=== PATIENT | female | born 1985 | race Caucasian/White ===

== ENCOUNTER 2020-10-03 07:22 | Emergency (ER) | payer OTHER ==
[2020-10-03] MEDS ORDERED: TORAdol 30 mg Injection IV ONE (07:32)
[2020-10-03] MEDS ORDERED: Sodium Chloride 0.9% 1000 ML 1,000 ML IV STA (07:32)
[2020-10-03] MEDS ORDERED: Sodium Chloride 0.9% 1000 ML 1,000 ML ONE (07:41)
[2020-10-03] MEDS ORDERED: TORAdol 30 mg Injection ONE (07:41)
[2020-10-03 07:43] LABS: Absolute Neutrophil Ct (ANC) 4.72 (1.4-6.9); BASOPHIL % 0.3 % (0.0-0.4); Basophil (Absolute #) 0.02 (0-0.4); Eosinophil % 2.4 % (0.00-5.0); Eosinophil (Absolute #) 0.19 (0-0.5); Hematocrit 41.2 % (35-47); Hemoglobin 13.7 gm/dl (12.0-16.0); Lymphocyte (Absolute #) 2.42 (1.0-4.6); Lymphocytes % 30.8 % (24.0-44.0); Mean Cell Volume 86.7 fl (78-100); Mean Corpuscular Hemoglobin 28.8 pg (26-32); Mean Corpuscular Hgb Concent. 33.3 g/dl (32-36); Mean Platelet Volume 9.8 fl (7.5-11.0); Monocyte (Absolute #) 0.51 (0.0-1.3); Monocytes % 6.5 % (0.0-12.0); Platelet Count 307 K/mm3 (150-450); Red Blood Count 4.75 M/mm3 (4.1-5.4); Red Cell Distribution Width 12.9 % (11.5-14.0); White Blood Count 7.9 K/mm3 (4.0-10.5)
[2020-10-03 07:49] LABS: Appearance SLIGHTLY CLOUDY (CLEAR); Bacteria RARE /HPF (NEGATIVE); Bilirubin NEGATIVE (NEGATIVE); Blood NEGATIVE Ery/ul (0-5); Epithelial Cells FEW /HPF (FEW); Glucose NEGATIVE (NEGATIVE); Ketones NEGATIVE (NEGATIVE); Leukocyte Esterase LARGE (NEGATIVE); Mucus MANY /HPF (NEGATIVE); Nitrite NEGATIVE (NEGATIVE); Protein,Urine Dip 30 (Negative); Specific Gravity 1.016 (1.005-1.025); Urobilinogen NEGATIVE mg/dL (0-1)
[2020-10-03 07:54] LABS: ALBUMIN 4.7 g/dL (3.5-5.0); ALKALINE PHOSPHATASE 102 U/L (38-126); AMYLASE 50 U/L (30-110); ANION GAP 13.1 MEQ/L (5-15); BLOOD UREA NITROGEN 13 mg/dL (7-17); CHLORIDE 101 mmol/L (98-107); Calcium 9.5 mg/dL (8.4-10.2); Carbon Dioxide 26 mmol/L (22-30); Creatinine 1 0.67 mg/dL (0.52-1.04); EST GLOMERULAR FILTRATION RATE > 60.0 ML/MIN; Glucose 107 mg/dL (74-106); LIPASE 32 U/L (23-300); Potassium 3.8 mmol/L (3.5-5.1); SGOT/AST 35 U/L (14-36); SGPT/ALT 26 U/L (0-35); SODIUM 136 mmol/L (137-145); Total Protein 8.1 g/dL (6.3-8.2)
[2020-10-03 08:40] VITALS: BP 158/99; PULSE 75; O2SAT 98
--- NOTE | 2020-10-03 08:42 | XRAY ---
Indication: Bilateral flank pain. History kidney stones. Multiple contiguous axial images obtained through the abdomen and pelvis without contrast using renal stone protocol. Comparison: None Lung bases are clear. Heart is not enlarged. No renal calculus or evidence for obstructive uropathy in either system. Noncontrasted stomach and bowel loops appear nonobstructed. Normal appendix with incidental tiny distal appendicolith. There has been hysterectomy. No free fluid/air. Remaining liver, gallbladder, pancreas, spleen, adrenal glands, kidneys, ureters, bladder, and aorta appear unremarkable for noncontrast exam. Osseous structures intact with incidental small L2 Schmorl node. No ventral or inguinal hernias. Impression: 1. Negative renal calculus or evidence for obstructive uropathy. 2. Incidental appendicolith and L2 Schmorl node. 3. Remaining CT abdomen/pelvis without contrast exam is negative.
--- NOTE | 2020-10-03 08:55 | ERPHSYRPT ---
- History of Present Illness Time Seen by Provider: 10/03/20 07:30 Historian: patient Exam Limitations: no limitations Patient Subjective Stated Complaint: pt here for pain to lower flank for a couple days, no nausea or fever, Triage Nursing Assessment: pt alert, resp easy, face mask in place, skin w/d/p. abd soft Physician History: Patient is a 35-year-old female who presents with right flank pain and low back pain since Saturday. At 2 AM this morning she had a severe episode of pain which radiated in the right flank and right lower abdomen no nausea vomiting diarrhea no change in urination no fever chills or sweats she does have a history of renal stone in the past. Timing/Duration: day(s) (4) Activities at Onset: none Quality: cramping, stabbing Abdominal Pain Onset Location: flank (right) Pain Radiation: RLQ Severity of Pain-Max: moderate Severity of Pain-Current: moderate Modifying Factors: Improves With: nothing Allergies/Adverse Reactions: No Known Drug Allergies Allergy (Verified 10/03/20 07:36) Home Medications: Celecoxib 100 mg [celeBREX 100 MG] 1 ea BID 10/03/20 [History] Duloxetine HCl 30 mg [Cymbalta 30 MG Capsule] 1 ea DAILY 10/03/20 [History] Hx Influenza Vaccination/Date Given: Yes Hx Pneumococcal Vaccination/Date Given: No Immunizations Up to Date: Yes Travel Risk - International Travel Have you traveled outside of the country in past 3 weeks: No - Coronavirus Screening Are you exhibiting any of the following symptoms?: No - Review of Systems Constitutional: No Fever, No Chills Eyes: No Symptoms Ears, Nose, & Throat: No Symptoms Respiratory: No Cough, No Dyspnea Cardiac: No Chest Pain, No Edema, No Syncope Abdominal/Gastrointestinal: No Abdominal Pain, No Nausea, No Vomiting, No Diarrhea Genitourinary Symptoms: Flank Pain, No Dysuria Musculoskeletal: Other (Back and right flank pain), No Back Pain, No Neck Pain Skin: No Symptoms, No Rash Neurological: No Symptoms, No Dizziness, No Focal Weakness, No Sensory Changes Psychological: No Symptoms Endocrine: No Symptoms All Other Systems: Reviewed and Negative - Past Medical History Pertinent Past Medical History: Yes Neurological History: No Pertinent History ENT History: No Pertinent History Cardiac History: Hypertension Respiratory History: No Pertinent History Endocrine Medical History: No Pertinent History Musculoskeletal History: Osteoporosis GI Medical History: No Pertinent History History: No Pertinent History Psycho-Social History: No Pertinent History Female Reproductive Disorders: Cervical Cancer, Menstrual Problems, Other Other Medical History: HX OF CERVICAL CA, HX OF SKIN CA, HX OF PRE ECLAMPSIA - Past Surgical History Past Surgical History: Yes Neuro Surgical History: No Pertinent History Cardiac: No Pertinent History Respiratory: No Pertinent History Gastrointestinal: No Pertinent History Genitourinary: No Pertinent History Musculoskeletal: No Pertinent History Female Surgical History: Hysterectomy, Tubal Ligation, Other Other Surgical History: UTERINE ABLASION DONE 2011, CA CERVICAL CELLS REMOVED, IN REMISSION - Social History Smoking Status: Never smoker Exposure to second hand smoke: No Drug Use: none Patient Lives Alone: No - Female History Hx Last Menstrual Period: hyster Hx Now: No - Nursing Vital Signs Nursing Vital Signs: Initial Vital Signs Temperature 97.7 F 10/03/20 07:23 Pulse Rate 104 H 10/03/20 07:23 Respiratory Rate 16 10/03/20 07:23 Blood Pressure 167/116 10/03/20 07:23 O2 Sat by Pulse Oximetry 100 10/03/20 07:23 Pain Scale Pain Intensity 7 - Physical Exam General Appearance: mild distress, alert Eye Exam: PERRL/EOMI, eyes nml inspection Ears, Nose, Throat Exam: normal ENT inspection, pharynx normal, moist mucous membranes Neck Exam: normal inspection, non-tender, supple, full range of motion Respiratory Exam: normal breath sounds, lungs clear, No respiratory distress Cardiovascular Exam: regular rate/rhythm, normal heart sounds Gastrointestinal/Abdomen Exam: soft, No tenderness, No mass Back Exam: normal inspection, normal range of motion, CVA tenderness (right), No vertebral tenderness Extremity Exam: normal inspection, normal range of motion, pelvis stable Neurologic Exam: alert, oriented x 3, cooperative, normal mood/affect, nml cerebellar function, sensation nml, No motor deficits Skin Exam: normal color, warm, dry SpO2 Interpretation: normal SpO2: 98 O2 Delivery: Room Air - Course Nursing assessment & vital signs reviewed: Yes - CT Exams Abdomen/Pelvis CT Interpretation: Negative Ordered Tests: Active Orders 24 hr Category Date Time Status IV Insertion STAT Care 10/03/20 07:32 Active ABDOMEN AND PELVIS W/0 CONTRAS [CT] Stat Exams 10/03/20 07:33 Completed AMYLASE Stat Lab 10/03/20 07:47 Completed CBC W DIFF Stat Lab 10/03/20 07:32 Completed CMP Stat Lab 10/03/20 07:47 Completed CULTURE,URINE Stat Lab 10/03/20 07:39 Received LIPASE Stat Lab 10/03/20 07:47 Completed Lactic Acid Stat Lab 10/03/20 07:32 Completed UA W/RFX UR CULTURE Stat Lab 10/03/20 07:39 Completed Medication Summary Discontinued Medications Generic Name Dose Route Start Last Admin Trade Name Frejeison PRN Reason Stop Dose Admin Sodium Chloride 1,000 mls @ 999 mls/hr 10/03/20 07:32 10/03/20 07:47 Sodium Chloride 0.9% 1000 Ml IV 10/03/20 08:32 999 mls/hr .Q1H1M STA Administration Sodium Chloride Confirm 10/03/20 07:41 Sodium Chloride 0.9% 1000 Ml Administered 10/03/20 07:42 Dose 1,000 mls @ ud .ROUTE .STK-MED ONE Ketorolac Tromethamine 30 mg 10/03/20 07:32 10/03/20 07:47 Toradol 30 Mg Injection IV 10/03/20 07:33 30 mg STAT ONE Administration Ketorolac Tromethamine Confirm 10/03/20 07:41 Toradol 30 Mg Injection Administered 10/03/20 07:42 Dose 30 mg .ROUTE .STK-MED ONE Lab/Rad Data: Laboratory Result Diagrams 10/03/20 07:32 10/03/20 07:47 Laboratory Results 10/03/20 10/03/20 10/03/20 Range/Units 07:47 07:39 07:32 WBC (4.0-10.5) K/mm3 RBC (4.1-5.4) M/mm3 Hgb (12.0-16.0) gm/dl Hct (35-47) % MCV (78-100) fl MCH (26-32) pg MCHC (32-36) g/dl RDW (11.5-14.0) % Plt Count (150-450) K/mm3 MPV (7.5-11.0) fl Gran % (36.0-66.0) % Eos # (Auto) (0-0.5) Absolute Lymphs (auto) (1.0-4.6) Absolute Monos (auto) (0.0-1.3) Lymphocytes % (24.0-44.0) % Monocytes % (0.0-12.0) % Eosinophils % (0.00-5.0) % Basophils % (0.0-0.4) % Absolute Granulocytes (1.4-6.9) Basophils # (0-0.4) Sodium 136 L (137-145) mmol/L Potassium 3.8 (3.5-5.1) mmol/L Chloride 101 (98-107) mmol/L Carbon Dioxide 26 (22-30) mmol/L Anion Gap 13.1 (5-15) MEQ/L BUN 13 (7-17) mg/dL Creatinine 0.67 (0.52-1.04) mg/dL Estimated GFR > 60.0 ML/MIN Glucose 107 H (74-106) mg/dL Lactic Acid 1.1 (0.4-2.0) Calcium 9.5 (8.4-10.2) mg/dL Total Bilirubin 0.60 (0.2-1.3) mg/dL AST 35 (14-36) U/L ALT 26 (0-35) U/L Alkaline Phosphatase 102 (38-126) U/L Serum Total Protein 8.1 (6.3-8.2) g/dL Albumin 4.7 (3.5-5.0) g/dL Amylase 50 (30-110) U/L Lipase 32 (23-300) U/L Urine Color YELLOW (YELLOW) Urine Appearance SLIGHTLY CLOUDY (CLEAR) Urine pH 6.0 (5-6) Ur Specific Homer 1.016 (1.005-1.025) Urine Protein 30 (Negative) Urine Ketones NEGATIVE (NEGATIVE) Urine Blood NEGATIVE (0-5) Rc/ul Urine Nitrite NEGATIVE (NEGATIVE) Urine Bilirubin NEGATIVE (NEGATIVE) Urine Urobilinogen NEGATIVE (0-1) mg/dL Ur Leukocyte Esterase LARGE (NEGATIVE) Urine WBC (Auto) 3-5 (0-5) /HPF Urine RBC (Auto) 3-5 (0-2) /HPF U Epithel Cells (Auto) FEW (FEW) /HPF Urine Bacteria (Auto) RARE (NEGATIVE) /HPF Urine Mucus (Auto) MANY (NEGATIVE) /HPF Urine Culture Reflexed YES (NO) Urine Glucose NEGATIVE (NEGATIVE) mg/dL 10/03/20 Range/Units 07:32 WBC 7.9 (4.0-10.5) K/mm3 RBC 4.75 (4.1-5.4) M/mm3 Hgb 13.7 (12.0-16.0) gm/dl Hct 41.2 (35-47) % MCV 86.7 (78-100) fl MCH 28.8 (26-32) pg MCHC 33.3 (32-36) g/dl RDW 12.9 (11.5-14.0) % Plt Count 307 (150-450) K/mm3 MPV 9.8 (7.5-11.0) fl Gran % 60.0 (36.0-66.0) % Eos # (Auto) 0.19 (0-0.5) Absolute Lymphs (auto) 2.42 (1.0-4.6) Absolute Monos (auto) 0.51 (0.0-1.3) Lymphocytes % 30.8 (24.0-44.0) % Monocytes % 6.5 (0.0-12.0) % Eosinophils % 2.4 (0.00-5.0) % Basophils % 0.3 (0.0-0.4) % Absolute Granulocytes 4.72 (1.4-6.9) Basophils # 0.02 (0-0.4) Sodium (137-145) mmol/L Potassium (3.5-5.1) mmol/L Chloride (98-107) mmol/L Carbon Dioxide (22-30) mmol/L Anion Gap (5-15) MEQ/L BUN (7-17) mg/dL Creatinine (0.52-1.04) mg/dL Estimated GFR ML/MIN Glucose (74-106) mg/dL Lactic Acid (0.4-2.0) Calcium (8.4-10.2) mg/dL Total Bilirubin (0.2-1.3) mg/dL AST (14-36) U/L ALT (0-35) U/L Alkaline Phosphatase (38-126) U/L Serum Total Protein (6.3-8.2) g/dL Albumin (3.5-5.0) g/dL Amylase (30-110) U/L Lipase (23-300) U/L Urine Color (YELLOW) Urine Appearance (CLEAR) Urine pH (5-6) Ur Specific Homer (1.005-1.025) Urine Protein (Negative) Urine Ketones (NEGATIVE) Urine Blood (0-5) Rc/ul Urine Nitrite (NEGATIVE) Urine Bilirubin (NEGATIVE) Urine Urobilinogen (0-1) mg/dL Ur Leukocyte Esterase (NEGATIVE) Urine WBC (Auto) (0-5) /HPF Urine RBC (Auto) (0-2) /HPF U Epithel Cells (Auto) (FEW) /HPF Urine Bacteria (Auto) (NEGATIVE) /HPF Urine Mucus (Auto) (NEGATIVE) /HPF Urine Culture Reflexed (NO) Urine Glucose (NEGATIVE) mg/dL - Progress Progress: improved - Departure Departure Disposition: Home Clinical Impression: UTI (urinary tract infection) Condition: Stable Critical Care Time: No Referrals: DANNY CAUSEY [Primary Care Provider] - Instructions: Urinary Tract Infection, Adult (DC) Prescriptions: Sulfamethoxazole/Trimethoprim [Bactrim Ds Tablet] 1 each PO BID 10 Days #20 tablet Oxycodone HCl/Acetaminophen [Percocet 5-325 mg Tablet] 1 each PO Q6H 3 Days #12 tablet MDD 4
== END 2020-10-03 09:02 | disposition home or self-care (01) ==
LOC: ED 07:22
DX: N39.0 Urinary tract infection, site not specified (principal); M54.5 Low back pain; R10.31 Right lower quadrant pain; Z79.899 Other long term (current) drug therapy; I10 Essential (primary) hypertension
CPT/HCPCS: 36000; 36415; 74176; 80053; 81001; 82150; 83605; 83690; 85025; 87086; 96360; 96374; 99284; J1885